=== PATIENT | female | born 1930 | race Caucasian/White ===

== ENCOUNTER 2016-08-02 10:18 | Emergency (ER) | payer MEDICARE ==
[2016-08-02] MEDS ORDERED: SODIUM CHLORIDE 0.9% 1,000 ML ONE (10:43)
== END 2016-08-02 15:30 | disposition home or self-care (01) ==
LOC: ER 10:18
DX: R10.84 Generalized abdominal pain (principal); K56.41 Fecal impaction; I10 Essential (primary) hypertension; E03.9 Hypothyroidism, unspecified; Z79.82 Long term (current) use of aspirin
CPT/HCPCS: 36415; 74176; 80053; 81001; 83605; 83690; 85025; 87077; 87088; 87186; 96360